=== PATIENT | male | born 1955 | race Caucasian/White ===

== ENCOUNTER 2023-01-01 08:09 | Outpatient (CLI) | payer MEDICARE, BC, SELFPAY | END 2023-01-01 08:10 | disposition home or self-care (01) | PROVIDERS: PCP Family Medicine; Visit Provider Family Medicine | DX: M51.36 Other intervertebral disc degeneration, lumbar region (principal); M54.16 Radiculopathy, lumbar region | CPT/HCPCS: 62323; J0702; Q9966 ==

== ENCOUNTER 2023-12-24 09:53 | Outpatient (CLI) | payer MEDICARE, BC, SELFPAY | END 2023-12-24 09:54 | disposition home or self-care (01) | LOC: INJ CL 09:54 | PROVIDERS: PCP Family Medicine; Visit Provider Family Medicine | DX: M54.16 Radiculopathy, lumbar region (principal); M48.062 Spinal stenosis, lumbar region with neurogenic claudication | CPT/HCPCS: 64483; J1100; Q9966 ==